=== PATIENT | female | born 1980 | race Caucasian/White ===

== ENCOUNTER → 2017-01-05 | Outpatient (CLI) | payer BC ==
[~2017-01-05] MED LIST: METO25TA3 PO
[2017-01-05 17:46] LABS: BLOOD UREA NITROGEN 15 mg/dl (7-18); BUN/CREATININE RATIO 16.1 (10-20); CALCIUM 9.1 mg/dl (8.5-10.1); CARBON DIOXIDE 30 mmol/L (21-32); CHLORIDE 107 mmol/L (98-107); CREATININE 0.92 mg/dl (0.60-1.20); GLUCOSE 117 mg/dl (70-99); POTASSIUM 4.2 mmol/L (3.5-5.1); SODIUM 142 mmol/L (136-145)
== END | disposition home or self-care (01) ==
LOC: C.LABBFT 15:03
PROVIDERS: ATTEND Nurse Practitioner
DX: R00.2 Palpitations (principal)

== ENCOUNTER → 2017-01-20 | Outpatient (CLI) | payer BC ==
--- NOTE | 2017-01-20 15:21 | ECHOCARDIOGRAM REPORT ---
*NOTICE TO RECEIVING [employer] This information is strictly Confidential and protected under [place] law. [place] law prohibits you from making any further disclosure of this information unless further disclosure is expressly permitted by the written consent of the person to whom it pertains or is authorized by law. A general authorization for the release of medical or other information is not sufficient for this purpose. Hospital accepts no responsibility if the information is made available to any other person, INCLUDING THE PATIENT. Interpretation Summary * Name: GABRIEL NICOLAS Study Date: 01/20/2017 02:59 PM * Patient Location: [facility] HR: 94 * : 1980 (M/d/yyyy) Gender: Female Height: 65 in * Age: 37 yrs Ethnicity: CA Weight: 210 lb * Ordering Physician: Jodi Coyle * Referring Physician: Jodi Coyle * Performed By: Yvette Tabor RDCS * * Reason For Study: Palpitations * BSA: 2.0 m2 * -- Conclusions -- * Left ventricular systolic function is normal. * Normal echocardiogram Procedure Details * A complete two-dimensional transthoracic echocardiogram was performed (2D, M-mode, Doppler and color flow Doppler). Left Ventricle * The left ventricle is normal in size. * There is normal left ventricular wall thickness. * Ejection Fraction = 55-60%. * Left ventricular systolic function is normal. * Normal diastolic function * The left ventricular wall motion is normal. Right Ventricle * The right ventricle is normal in size and function. * The right ventricular systolic function is normal as assessed by tricuspid annular plane systolic excursion (TAPSE) (normal >1.5 cm). Atria * The left atrial size is normal. * Right atrial size is normal. Mitral Valve * The mitral valve anatomy is normal. * There is no mitral regurgitation noted. Tricuspid Valve * The tricuspid valve anatomy is normal. * There is trace tricuspid regurgitation. Aortic Valve * The aortic valve is normal in structure and function. * The aortic valve is trileaflet. * No hemodynamically significant valvular aortic stenosis. * There is no significant aortic regurgitation. Great Vessels * The aortic root is normal size. Pericardium/Pleural * There is no pericardial effusion. MMode 2D Measurements and Calculations IVSd 0.74 cm LVIDd 5.0 cm LVIDs 3.6 cm LVPWd 0.77 cm IVS/LVPW 0.96 FS 28.8 % EDV(Teich) 117.7 ml ESV(Teich) 52.7 ml EF(Teich) 55.2 % EDV(cubed) 124.2 ml ESV(cubed) 44.8 ml EF(cubed) 63.9 % LV mass(C)d 125.8 grams LV mass(C)dI 62.3 grams/m\S\2 SV(Teich) 65.0 ml SI(Teich) 32.2 ml/m\S\2 SV(cubed) 79.4 ml SI(cubed) 39.3 ml/m\S\2 Ao root diam 3.1 cm Ao root area 7.5 cm\S\2 ACS 1.7 cm LA dimension 2.7 cm asc Aorta Diam 3.1 cm LA/Ao 0.87 LVOT diam 2.0 cm LVOT area 3.2 cm\S\2 LVAd ap4 28.6 cm\S\2 LVLd ap4 8.0 cm EDV(MOD-sp4) 85.2 ml EDV(sp4-el) 86.6 ml LVAs ap4 17.0 cm\S\2 LVLs ap4 6.6 cm ESV(MOD-sp4) 37.6 ml ESV(sp4-el) 37.5 ml EF(MOD-sp4) 55.8 % EF(sp4-el) 56.7 % LVAd ap2 23.9 cm\S\2 LVLd ap2 7.6 cm EDV(MOD-sp2) 62.8 ml EDV(sp2-el) 63.8 ml LVAs ap2 14.3 cm\S\2 LVLs ap2 6.1 cm ESV(MOD-sp2) 27.9 ml ESV(sp2-el) 28.5 ml EF(MOD-sp2) 55.6 % EF(sp2-el) 55.3 % LVLd %diff -5.56 % EDV(MOD-bp) 73.5 ml LVLs %diff -7.19 % ESV(MOD-bp) 32.8 ml EF(MOD-bp) 55.3 % SV(MOD-sp4) 47.6 ml SI(MOD-sp4) 23.6 ml/m\S\2 SV(MOD-sp2) 35.0 ml SI(MOD-sp2) 17.3 ml/m\S\2 SV(MOD-bp) 40.7 ml SI(MOD-bp) 20.2 ml/m\S\2 SV(sp4-el) 49.1 ml SI(sp4-el) 24.3 ml/m\S\2 SV(sp2-el) 35.3 ml SI(sp2-el) 17.5 ml/m\S\2 Doppler Measurements and Calculations MV E max marcelina 73.3 cm/sec MV A max marcelina 52.3 cm/sec MV E/A 1.4 MV dec time 0.19 sec Ao V2 max 130.5 cm/sec Ao max PG 6.8 mmHg Ao max PG (full) 0.64 mmHg JOSEPH(V,A) 3.1 cm\S\2 JOSEPH(V,D) 3.1 cm\S\2 LV V1 max PG 6.2 mmHg LV V1 max 124.2 cm/sec PA V2 max 79.4 cm/sec PA max PG 2.5 mmHg PA acc slope 327.4 cm/sec\S\2 PA acc time 0.17 sec PI max marcelina 138.0 cm/sec PI max PG 7.6 mmHg PI dec slope 186.4 cm/sec\S\2 PI P1/2t 217.0 msec PA pr(Accel) 1.9 mmHg
== END | disposition home or self-care (01) ==
LOC: C.CPL 13:45
PROVIDERS: ATTEND Nurse Practitioner
DX: R00.2 Palpitations (principal)

== ENCOUNTER → 2017-04-12 | Outpatient (CLI) | payer BC ==
--- NOTE | 2017-04-12 14:41 | MAMMOGRAPHY REPORT ---
BILATERAL DIGITAL DIAGNOSTIC MAMMOGRAM TOMOSYNTHESIS WITH CAD AND TARGETED LEFT ULTRASOUND: 04/12/2017 CLINICAL HISTORY: The patient reported she saw her physician for left chest pain, and was noted to eduardo ve breast pain during the clinical exam. She denies any palpable lumps or other complaints. She has a family history of breast cancer including multiple paternal aunts and cousins. TECHNIQUE: Breast tomosynthesis in addition to standard 2D mammography was performed. Current study was also evaluated with a Computer Aided Detection (CAD) system. Bilateral CC and MLO 2-D and tomosy nthesis images and spot magnification left CC and ML views were obtained. COMPARISON: No prior exams were available for comparison. BREAST COMPOSITION: The tissue of both breasts is heterogeneously dense, which may obscure small mas ses. FINDINGS: In the left upper inner quadrant, there is a small 5 mm cluster of predominantly punctate calcifications, as well as other loosely grouped punctate calcifications seen surrounding the cluster . The total extent of the calcifications measures 2.8 x 1.8 cm. The calcifications are indeterminat e given no priors to document stability. Recommend stereotactic biopsy for further evaluation. The r emainder of both breasts are negative, without suspicious masses, calcifications, or areas of archite ctural distortion noted. Targeted ultrasound was performed of the area of pain described by the patient in the left lateral br east. No suspicious masses or other suspicious sonographic abnormalities are evident. Incidentally n oted is a small oval anechoic benign simple cyst measuring 4 x 4 mm in the left breast at 3:00, 2 cm from the nipple. IMPRESSION: ACR BI-RADS CATEGORY 4: SUSPICIOUS, TARGETED ULTRASOUND ACR BI-RADS CATEGORY 4: SUSPICIO US 1. No suspicious mammographic or sonographic abnormality to explain left breast tenderness. Recomme nd clinical follow-up. 2. Grouped punctate calcifications in the left upper inner quadrant. The calcifications are indeter minate given no priors to document stability. Stereotactic biopsy is recommended for further evaluat ion, especially given the family history of breast cancer. A phone call was made to the physician's office to confirm faxed results were received. The patient has been verbally notified of the results. She tentatively scheduled the biopsy before leaving the [facility]. Approximately 10% of breast cancers are not detected with mammography. A negative mammographic report should not delay biopsy if a clinically suggestive mass is present. Sharon Frazier M.D. ah/:04/12/2017 09:30:01 Senior Windows Systems Engineer: Rosie PINEDA)(Jennifer), [facility] letter sent: Abnormal 4/5 BI-RADS Code: ACR BI-RADS Category 4: Suspicious Ultrasound BI-RADS: ACR BI-RADS Category 4: Suspici ous
== END | disposition home or self-care (01) ==
LOC: C.MAMM 08:22
PROVIDERS: ATTEND Internal Medicine
DX: N64.4 Mastodynia (principal); R92.1 Mammographic calcification found on diagnostic imaging of breast; Z80.3 Family history of malignant neoplasm of breast

== ENCOUNTER → 2017-04-20 | Outpatient (CLI) | payer BC ==
--- NOTE | 2017-04-20 12:41 | Discharge Instructions ---
Discharge Instructions Procedure Procedure Date: Apr 20, 2017. Reason for visit: Left Calcifications. Discharge Discharge Date: Apr 20, 2017. Discharge Diagnosis: status post breast biopsy Instructions Activity Recommendations: Additional Limitations (see below) Return to School/Work: no limitations Recommended Home Diet: No Limitations Provider Instructions: ACTIVITY RECOMMENDATIONS: * No lifting, pushing, pulling or exercising the affected side for three days. RETURN TO SCHOOL/WORK: * You may return to work/school after the procedure, but do not perform any strenuous activities for 24 to 48 hours. MEDICATIONS: * Tylenol (two 325 mg) every four to six hours if needed for mild pain (if not allergic to Tylenol). DIET: * Resume previous diet. SPECIAL CARE INSTRUCTIONS: * Keep biopsy site dry for 24 hours. May shower after 24 hours, but do not soak (bathe) incision. * May remove Tegaderm (plastic patch) tomorrow AFTER showering. * Leave the steri-strips on for one week. Allow the steri-strips to fall off by themselves. If not off after one week, you may remove them. You may place a Bandaid crosswise over the strips, if desired. * Apply ice 10 minutes on and 10 minutes off as needed. * Wear a bra at bedtime to sleep more comfortably for 2-3 days. * Your referring physician should have the results after approximately 5 to 7 business days. * Call for unusual bleeding, fever, drainage, etc or if you have any questions call during normal business hours or after hours call Dr Frazier, [phone]. FOLLOW UP VISIT: Follow-up with Referring Physician as scheduled. Allergies Coded Allergies: No Known Allergies (Verified , 01/13/15) Dixie Garcia Recommendations: Call your doctor if: * Temperature above 101 degrees * Pain not relieved by pain medicine ordered * There is increased drainage or redness from any incision * You have any unanswered questions or concerns. Your Doctors Instructions noted above were prepared by provider Sharon Frazier. Patient Signature Section: Patient Instructions Signature Page Kasandra Samaniego Patient (or Guardian) Signature/Date: I have read and understand the instructions given to me by my caregivers. Caregiver/RN/Doctor Signature/Date: The above-named patient and/or guardian has received patient instructions on this date. + Original Patient Signature Page (only) stays with chart. Please make copy for patient.
--- NOTE | 2017-04-20 14:03 | MAMMOGRAPHY REPORT ---
STEREOTACTIC GUIDED BIOPSY LEFT BREAST: 04/20/2017 CLINICAL HISTORY: Indeterminate calcifications in the left upper inner quadrant. PATIENT CONSENT: The procedure, risks, benefits, and alternatives of stereotactic biopsy with clip pl acement were discussed with the patient, and verbal and written consent was obtained. A timeout was performed immediately prior to the procedure. PROCEDURE DESCRIPTION: With tomosynthesis stereotactic guidance, aseptic technique, and lidocaine as a local anesthetic (1% lidocaine to anesthetize the skin and 1% lidocaine with epinephrine to anesthe tize the deeper tissues), the calcifications of concern in the left upper inner quadrant were sampled multiple times with a 9-gauge vacuum-assisted biopsy needle ([employer]). The path of approach was medial. The specimen radiograph demonstrates calcifications to be present in the samples. A metall ic marker clip was placed at the biopsy site. This was confirmed on postprocedure mammograms. Direc t pressure was applied at the biopsy site and hemostasis was readily achieved. The patient tolerated the procedure without complication. She was given wound care instructions. COMPARISON: Comparison is made to exams dated: 04/12/2017 ultrasound and 04/12/2017 mammogram - [facility]. IMPRESSION: STEREOTACTIC GUIDED BIOPSY Stereotactic guided biopsy of indeterminate calcifications in the left upper inner quadrant, with cli p placement. The patient will receive pathology results from her referring provider. Sharon Frazier M.D. ah/:04/20/2017 12:54:16 Attending Technologist: Rosie Bateman RT(R)(M), [facility] Lens Polisher Hand: Lauren Torres RT(R)(M), [facility]
== END | disposition home or self-care (01) ==
LOC: C.MAMM 11:58
PROVIDERS: ATTEND Internal Medicine
DX: R92.0 Mammographic microcalcification found on diagnostic imaging of breast (principal)

== ENCOUNTER 2019-01-02 11:41 | Observation (INO) ==
[~2019-01-02 11:41] MED LIST changes: +BACITRACIN INJ 50,000 UNIT VIAL ONE; +BACITRACIN OINT 0.9 GM PKT ONE; +LIDOCAINE HCL 1% 20 ML VIAL ONE; -METO25TA3 PO
[2019-01-02] MEDS ORDERED: MIDAZOLAM HCL 5 MG/ML 1 ML VIAL ONE ×2 (12:47→13:48)
[2019-01-02] MEDS ORDERED: CEFAZOLIN 250 MG/ML 1 GM VIAL ONE (12:47)
[2019-01-02] MEDS ORDERED: fentaNYL citrate 100 MCG/2 ML VIAL ONE ×2 (12:47→13:45)
--- NOTE | 2019-01-02 13:15 | History & Physical Bridge Note ---
Date of Service January 02, 2019 History & Physical Bridge Note I have examined the patient, reviewed the History & Physical and in the interval since the performance of the History & Physical I have noted the following changes of clinical significance: no changes noted. I reviewed the indications, procedure, risks and alternatives with her and her significant other who is with her and they understand and she agrees to proceed. Consent obtained. I discussed the use of a single atrial lead and she understands. I also discussed conscious sedation and the risk with her and she understands and agrees. Consent obtained. A urine test was negative.
--- NOTE | 2019-01-02 13:21 | Pre Anesthesia Assessment ---
Date of Service January 02, 2019 Pre Sedation Assessment Cardiovascular RRR, no murmur, no edema Respiratory normal respiratory effort, lungs clear to auscultation Pre-Sedation Airway Assessment Smoking Status: Current some day smoker Hx Sleep Apnea: No Hx Difficult Intubation: No Short, Thick Neck: No Thyromental Distance: > or= 3.5 Finger Breadths Oral Cavity: + WNL Mallampati Class: III ASA: ASA2 NPO Status Date of Last Intake of Fluids: 01/01/19 Time of Last Intake of Fluids: 19:00 Date of Last Intake of Solid Food: 01/01/19 Time of Last Intake of Solid Foods: 19:00 Procedure Planning Contraindications for Sedation: none Current Medications Reviewed: Yes Notes The planned sedation has been discussed with the patient. Informed Consent was obtained. I have identified the patient, determined the appropriateness of sedation and have assessed the patient immediately prior to the procedure. All medicine(s) and interventions are by my order.
[2019-01-02] MEDS ORDERED: ACETAMINOPHEN 325 MG TAB PO PRN (14:47)
--- NOTE | 2019-01-02 14:47 | Operative Report ---
PG Post Operative Report Pre & Post Diagnosis Operation Date: 01/02/19 13:00 Preoperative diagnosis: Sinus arrest with syncope Postoperative diagnosis: Same I identified the patient and participated in the time-out.: Yes Procedure Operation Date: 01/02/19 13:00 Actual Procedures p Pacer with Atrial Lead - Eris Mensah MD Surgeon Eris Mensah MD Fermentation Operator None Estimated Blood Loss 25 Findings Consistent with Post-Op Diagnosis Good lead position, good measurements Specimens None Anesthesia Type Local Complications none Disposition Accompanied Patient To Recovery: No Disposition: Surgical ICU Description of Procedure After obtaining informed consent for the procedure, the patient was brought to the laboratory and prepped and draped in the standard sterile manner. The left prepectoral region was anesthetized with 1% lidocaine local anesthetic and left axillary venipuncture was performed by percutaneous technique and a guidewire placed through the left subclavian vein into the superior vena cava. The area was further infiltrated with 1% lidocaine local anesthetic and a 5 cm incision was made parallel to the left clavicle and 2 cm below it and carried down to the anterior pectoralis fascia. A pacemaker pocket was formed by blunt dissection anterior to the pectoralis fascia and a bacitracin-soaked sponge (50,000 units in 50 cc normal saline solution) was placed in the pocket. An 8 [place] Medtronic lead introducer was placed over the guidewire into the left subclavian vein, the dilator and guidewire were removed and a bipolar active fixation steroid tipped atrial lead was advanced through the introducer into the superior vena cava. A guidewire was placed through the introducer and the introducer was stripped from the lead and guidewire. Using a curved stylette the atrial lead was positioned in the region of the atrial appendage. The screw was extended fixing the lead in position. Pacing and sensing thresholds were evaluated in bipolar configuration and are recorded on the implant data sheet. Once the lead was in position it was attached to the anterior pectoralis fascia using 2 sutures of 1-0 silk around the lead collar. The bacitracin-soaked sponge was removed from the pocket, hemostasis was obtained, the pacemaker was attached to the lead and placed in the pocket with the lead coiled beneath it. The incision was closed with a running double subcutaneous closure of 3-0 Vicryl absorbable suture, followed by running subcuticular skin closure of 4-0 Vicryl absorbable suture. Bacitracin ointment was placed on the incision and a pressure dressing applied. I attest to the content of the Intraoperative Record and any orders documented therein. Any exceptions are noted below.
[2019-01-02] MEDS ORDERED: IBUPROFEN 200 MG TAB PO PRN (14:49)
[2019-01-02] MEDS ORDERED: METHOCARBAMOL 750 MG TABLET PO PRN (14:49)
[2019-01-02] MEDS ORDERED: ACETAMINOPHEN 500 MG TAB PO PRN (14:49)
[2019-01-02] MEDS ORDERED: MECLIZINE HCL 25 MG TAB PO PRN (14:49)
[2019-01-02] MEDS ORDERED: SUMAtriptan succinate 50 MG TAB PO PRN (14:49)
[2019-01-02] MEDS ORDERED: HYOSCYAMINE SULFATE 0.125 MG TAB SL PRN (14:49)
[2019-01-02] MEDS ORDERED: ONDANSETRON 4 MG TAB PO PRN (14:49)
--- NOTE | 2019-01-02 16:29 | Post Anesthesia Assessment ---
Date of Service January 02, 2019 Post Sedation Assessment Recovery Score Activity: Moves 4 extremities Respiration: Deep Breath/Cough Circulation: +/-20% PreAnes Value Consciousness: Fully Awake Oxygen Saturation: > 92% On Room Air Discharge Sedation Level of Care: Fast Track Phase II Post Sedation Plan On clinical assessment, the patient appears to have tolerated the sedation without complications. Patient is recovering as anticipated. Patient will continue to be monitored by nursing and may be discharged when sedation discharge criteria are met per below protocol. Upon Completions of procedure and additional 15 minutes continue every 5 minute vital signs and the P.A.R. score; then discharge to a Phase I or Fast Track to Phase II per the following guidelines: * Discharge Patient to appropriate Phase II area if PAR is 8 or greater or return to pre- procedure baseline. The post - procedure orders will be as directed. * If PAR score is less than 8 or not return to pre-procedure baseline then patient will follow Phase I monitoring till PAR is reached for Phase II. The Phase I may be done in procedure room or may call to secure a Phase I area. * If naloxone or flumazenil are used for reversal, hold in Phase I for continued monitoring from when last reversal dose was given for a minimum of 60 minutes or longer pending the nurse and/or physician discretion of patient condition before discharge to Phase II. Please call the Sedation Physician to re-evaluate and complete post-note for discharge to Phase II area. Do NOT discharge from procedure sedation or Phase 1 until post- sedation evaluation note is complete by procedure /sedation MD Sedation Discharge Instructions to be given to the patient at discharge to home.
[2019-01-02] MEDS: KETOROLAC TROMETHAMINE 10 MG TABLET PO PRN (16:31)
[2019-01-02] MEDS: MOMETASONE FUROATE 14 PUFF/1 INHALER INH SCH (20:33)
[2019-01-02] MEDS: ACETAMINOPHEN W/CODEINE #3 1 TAB PO PRN (20:38)
[2019-01-03] MEDS: ACETAMINOPHEN W/CODEINE #3 1 TAB PO PRN (02:35)
[2019-01-03 03:47] VITALS: TEMP 98.8
--- NOTE | 2019-01-03 06:54 | XRay Report ---
XR chest 2V PA/lateral CLINICAL HISTORY: EXACT TIME ORDERED Evaluate for pneumothorax and l COMPARISON STUDY: 07/12/2018 FINDINGS: Interval placement of a unipolar left cardiac pacemaker. Lead is in good position. No evide nce of pneumothorax. Lungs are clear. IMPRESSION: Placement of a unipolar cardiac pacemaker. No evidence for pneumothorax. The above report was generated using voice recognition software. It may contain grammatical, syntax or spelling errors. Electronically signed by: Isrrael Donnelly M.D. 01/03/2019 6:53 AM
[2019-01-03] MEDS ORDERED: PANTOprazole 40 MG TAB PO SCH (07:00)
[2019-01-03 07:07] VITALS: BP 116/83; O2SAT 98
[2019-01-03] MEDS: KETOROLAC TROMETHAMINE 10 MG TABLET PO PRN (08:57)
[2019-01-03] MEDS: MOMETASONE FUROATE 14 PUFF/1 INHALER INH SCH (08:57)
[2019-01-03] MEDS ORDERED: ASCORBIC ACID 500 MG TAB PO SCH (09:00)
[2019-01-03] MEDS ORDERED: LACTOBACILLUS ACIDOPHILUS (FLORANEX) TAB PO SCH (09:00)
[2019-01-03] MEDS ORDERED: VENLAFAXINE HCL XR 75 MG CAPXR PO SCH (09:00)
--- NOTE | 2019-01-03 09:20 | Cardiology Progress Note ---
Date of Service January 03, 2019 Assessment & Plan (1) Status post placement of cardiac pacemaker: She is doing well postop day #1, the pacemaker is working well on telemetry, the chest x-ray looks good and the site looks good. She is stable for discharge. Subjective She is having some incisional discomfort, otherwise no discomfort at the site. No chest discomfort. She does describe occasional palpitations overnight, much as she has had before. No lightheadedness, dizziness, presyncope or syncope. No shortness of breath. Physical Exam Physical Exam: The incision looks clean and dry, no significant bleeding, no ecchymosis. No erythema. Cardiac rhythm is regular with no murmur or rub. Lungs are clear Results & Data Vital Signs (Past 12 Hours) Vital Signs Temp Pulse Resp BP Pulse Ox 01/03/19 07:04 37.1 C 79 17 116/83 98 01/03/19 03:46 37.1 C 82 17 101/68 96 01/02/19 23:41 37.3 C 93 H 17 102/67 96 Diagnostic Findings ECG: Postop sinus rhythm, appropriate pacemaker inhibition Telemetry: Intermittent appropriate atrial pacing Chest x-ray: Good lead position, no pneumothorax PG Care Time/CCT Total # of Minutes Spent Total Time Spent with Patient: Total time spent is greater than 50% in coordination of care (as documented) at patient's floor/unit and/or counseling patient:
[2019-01-03 09:52] VITALS: PULSE 79
--- NOTE | 2019-01-22 16:26 | Discharge Summary ---
Date of Service January 22, 2019 Admission HPI Per Admitting Provider This is a 38-year-old woman with a long history of syncope for which she had a loop recorder implanted on June 20, 2018. She then had a presyncopal episode followed by syncope and her loop recorder showed significant bradycardia. Although it may have been part been vagal the characteristics were unusual and with the multiple episodes of syncope we felt she needed a pacemaker. She is therefore admitted for pacemaker implantation. Admission Exam Per Admitting Provider Constitutional: Alert, cooperative and in no distress. HEENT: Unremarkable Neck: No jugular venous distention, carotid pulses are normal and equal bilaterally without bruits. Pulmonary: Clear to auscultation bilaterally. Cardiac: Regular rhythm with no murmur, gallop or rub. Abdomen: Soft, nontender with normal bowel sounds. Extremities: No edema. Distal pulses intact. Neurologic: No focal findings. Gait is steady. Skin: No rash, ecchymoses or petechiae. Principal Diagnosis Bradycardia with syncope Discharge Exam Her incision is clean and dry, no significant bleeding. [facility] Mallampati Class: III Respiratory normal respiratory effort, lungs clear to auscultation Cardiovascular RRR, no murmur, no edema Discharge Data Allergies Allergy/AdvReac Type Severity Reaction Status Date / Time No Known Allergies Allergy Unknown Verified 12/29/18 09:08 Procedures Performed Operation Date: 01/02/19 13:00 Actual Procedures p Pacer with Atrial Lead - Eris Mensah MD Ordered Studies 01/02/19 06:31 CL Cath Imgs for PACS use only Routine Hospital Course (1) Status post placement of cardiac pacemaker: She underwent dual-chamber pacemaker without difficulty, she is doing well postop day #1, the pacemaker is working well on telemetry, the chest x-ray looks good and the site looks good. She is stable for discharge. Total Time Total Time Spent Total Time Spent (In Minutes): 25 Discharge Plan Discharge Items Patient Disposition: Home - Self-Care Reason For Visit: Sinus Arrest Discharge Diagnosis: Post pacemaker implantation Activity: Per Instructions section Bathing: Keep incision dry Driving/Machine Use: No limitations Non-emergency contact: Primary Care Provider Call non-emergency contact if: you have any medication questions Follow-up/Referrals: Angela Magaña CRNP [Primary Care Provider] - Diet: Regular Addtl Attending Provider Instructions: ACTIVITY RECOMMENDATIONS: * Do not raise affected arm over head for 2 weeks. SPECIAL CARE INSTRUCTIONS: * If bleeding occurs, apply direct pressure to area for 5 minutes. * Call your doctor if you have severe pain, fever, drainage or bleeding at site. * Keep dressing on and dry for 48 hours then remove. * Keep any scheduled doctor's appointment. * Implant Card - hand held device with website information given. SKIN IRRITATION: * You may experience some redness and/or swelling in the area where radiation was administered. If any skin irritation occurs, please contact your family physician. FOLLOW UP VISIT: Keep any scheduled doctor appointments. Pending Studies at Discharge: No Stand-Alone Forms: [employer], Smoking Cessation Medications and DC Order Prescriptions: Continued pantoprazole 40 mg tablet,delayed release (DR/EC) 40 mg PO .COMPLEX Qty: 30 RF: 2 hyoscyamine sulfate 0.125 mg tablet, sublingual 0.125 mg SL Q6H PRN (Reason: abdominal pain) Qty: 30 RF: 1 sumatriptan succinate 50 mg tablet 50 mg PO ONCE PRN (Reason: migraine headache) Qty: 9 RF: 0 ondansetron HCl 4 mg tablet 4 mg PO Q8H PRN (Reason: nausea and vomiting) Qty: 10 RF: 0 Lactobacillus acidophilus 1 billion cell tablet 1,000 mmu cells PO DAILY Qty: 30 RF: 0 meclizine 25 mg tablet 25 mg PO TID PRN (Reason: dizziness) Qty: 30 RF: 0 methocarbamol 750 mg tablet See Patient Comments PO TID PRN (Reason: Spasms) RF: 0 venlafaxine 37.5 mg capsule,extended release 24hr 75 mg PO DAILY Qty: 60 RF: 0 mometasone 100 mcg/actuation HFA aerosol inhaler 1 puffs inhalation BID Qty: 1 RF: 0 acetaminophen [Tylenol Extra Strength] 500 mg Tablet 1,000 mg PO Q6H PRN (Reason: Pain) RF: 0 ascorbic acid (vitamin C) [Vitamin C] 500 mg Tablet 500 mg PO QAM RF: 0 ibuprofen 200 mg Tablet 600 mg PO QID PRN (Reason: Pain) RF: 0 albuterol sulfate [Ventolin HFA] 90 mcg/actuation HFA aerosol inhaler 1 - 2 puff Inhalation Q4 PRN (Reason: Shortness Of Breath Or Wheezing) RF: 0 Ajovy 225 mg/1.5 mL Syringe 1.5 ml subcut MONTHLY RF: 0 Discharge Orders: Discharge Order (Routine); Ordered 01/03/19 Ordered By: Eris Real/Other Patient Handouts: Pacemakers, Implantation Pacemaker Dc Admission Data Admit Date/Time: 01/02/19 14:02 Attending Provider: Eris Mensah Admit Provider: Eris Mensah Primary Care Provider: Angela Magaña Other Interventions: Discharge Summary Assessment (RN) Last Done: 01/03/19 09:41 DC Date/Time DO NOT enter until pt leaves facility: 01/03/19 10:17
== END 2019-01-03 10:17 | disposition home or self-care (01) ==
LOC: EP 11:41 → 1E 11:41 → 2S 18:42